=== PATIENT | female | born 1955 ===

== ENCOUNTER 2019-11-13 07:50 | Day surgery (SDC) | payer OTHER ==
[~2019-11-13 07:50] MED LIST: AMBIEN10 MG PO; CLONAZEPAM0.5 MG PO; GABAPENTIN300 M2 PO; NABUMETONE500 MG PO; PROBIOTIC1 EAC1 PO; PROTONIX40 MG PO; XELPROS2.5 ML OP
[2019-11-13] MEDS ORDERED: IBU600 MG PO (12:33)
== END 2019-11-13 16:10 | disposition home or self-care (01) ==
LOC: CIR.AMB 07:50
PROVIDERS: ATTEND Obstetrics & Gynecology Gynecology
DX: N95.0 Postmenopausal bleeding (principal); Z20.828 Contact with and (suspected) exposure to other viral communicable diseases